=== PATIENT | female | born 1950 | race Caucasian/White ===

== ENCOUNTER 2024-06-22 05:52 | Inpatient (IN) | payer OTHER, SELFPAY ==
[2024-06-21 23:50] VITALS: BP 129/54
[2024-06-22 00:19] VITALS: BMI 18.3
[2024-06-22 00:37] LABS: % Basophils 0.5 % (0-2); % Eosinophils 0.5 % (0-6); % Immature Granulocytes 0.8 % (0-0.5); % Lymphocytes 10.5 % (20.5-51.1); % Monocytes 5.5 % (1.7-9.3); % Neutrophils 82.2 % (42.2-75.2); Absolute Basophils 0.1 10^3/uL (0-0.2); Absolute Eosinophils 0.1 10^3/uL (0-0.7); Absolute Immature Granulocytes 0.1 10^3/uL (0-0.05); Absolute Lymphocytes 1.4 10^3/uL (1.2-3.4); Absolute Monocytes 0.7 10^3/uL (0.1-0.6); Absolute Neutrophils 10.7 10^3/uL (1.4-6.5); Hematocrit 39.6 % (37.0-47.0); Hemoglobin 13.8 g/dL (12.0-16.0); Mean Corp Hgb Conc. 34.8 g/dL (33.0-37.0); Mean Corpuscular Hgb 29.1 pg (27.0-31.0); Mean Corpuscular Volume 83.5 fL (81.0-99.0); Mean Platelet Volume 10.6 fL (7.4-10.4); Nucleated Red Blood Cells % 0 %; Platelet Count 186 10^3/uL (130-400); Red Blood Cell Count 4.74 10^6/uL (4.20-5.40); Red Cell Dist. Width 14.1 % (11.5-14.5)
[2024-06-22 00:50] LABS: ALT (SGPT) 12 U/L (0-35); AST (SGOT) 22 U/L (14-36); Albumin 4.2 g/dl (3.5-5.0); Alkaline Phosphatase 66 U/L (38-126); Blood Urea Nitrogen 18 mg/dl (7-17); Calcium 9.5 mg/dl (8.4-10.2); Carbon Dioxide 20 mmol/L (22-30); Chloride 107 mmol/L (98-107); Estimated Creatinine Clearance 41 ml/min; Glucose 149 mg/dl (70-99); Lipase 1637 U/L (23-300); Potassium 3.6 mmol/L (3.5-5.1); Sodium 138 mmol/L (135-145); Total Bilirubin 0.7 mg/dl (0.2-1.3); Total Protein 6.6 g/dl (6.3-8.2); eGFR > 60.00
[2024-06-22 01:00] VITALS: BP 144/67
--- NOTE | 2024-06-22 01:10 | ED.GENMED ---
History of Present Illness
General
Chief Complaint: Dizziness
Source: patient
Exam Limitations: none
Time Seen by Provider: 06/22/24 01:07
History of Present Illness
History of Present Illness:
74-year-old female with past medical history of COPD, M�ni�re's disease, GERD, presents emergency department today with concerns of dizziness, nausea and vomiting. Patient reports that this started a few hours prior to arrival to emergency
department. When asked if she has had this before or if her symptoms have gotten better, she states that she is not sure. She denies any fevers or chills with this. She does note some lower chest pain/epigastric pain associated with this as well.
She denies any past history of intra-abdominal surgeries. She states that this came on all of a sudden and states that she has been feeling well the past few days. She has any alcohol use, NSAIDs. She denies any rectal bleeding, dark tarry
stools. She does note a mild frontal headache. She comes from home where she called EMS. She denies any shortness of breath. She denies any syncopal episodes.
Past History
Past History
ED Past Medical History: COPD and GERD
ED Past Surgical History: Other
Social History
Tobacco: Former smoker
Drug: None
Personal: Single
Living: other
Family History
Family History: Other
Review of Systems
Review of Systems
All Other Systems: ROS reviewed and negative except as documented in HPI and ROS
Phy Exam
Physical Exam
Physical Exam:
General: Patient actively vomiting, however nontoxic appearing
Skin: Warm and dry, no rashes or lesions
Head: Normocephalic, atraumatic
Eyes: Sclera non-icteric. EOMs intact.
Cardiac: Patient mildly tachycardic otherwise regular rhythm, no murmurs, no tenderness to palpation external chest wall
Pulm: Normal respiratory effort, no wheezes, rales, rhonchi
Abdomen: Epigastric abdominal tenderness with guarding noted, no rebound tenderness, normoactive bowel sounds
Neuro: CN II-XII intact, no focal neurologic deficits.
Psychiatric: Appropriate mood and affect.
Course
Orders/Labs/Results
Orders:
Orders
06/21/24 23:54
ECG [Electrocardiogram (*1)] Urgent
Reason for Study: Vertigo / Dizzy
EKG- Treatment ONCE
06/22/24 00:11
Alcohol Urgent
Complete Blood Count/With Diff Urgent
Comprehensive Metabolic Panel Urgent
Lipase Urgent
06/22/24 01:27
Lactated Ringers [Lr] 500 ml IV BOLUS
Ondansetron Injectable [Zofran] 4 mg IV NOW STA
06/22/24 01:28
CT Head W/o Iv Contrast Urgent
Comment:
Reason For Exam: dizziness, headache
CR Chest - 2 Views Urgent
Comment:
Reason For Exam: transient hypoxia
06/22/24 01:33
US Abdomen Complete/Upper Urgent
Comment:
Reason For Exam: epigastric pain, elevated lipase
06/22/24 01:38
COVID-19 Antigen Urgent
Source: Nasal Swab
Influenza A+B Rapid Molecular Urgent
NINO Source: Nasal Swab
Specimen Description:
06/22/24 02:27
Ondansetron HCl [Zofran] 4 mg PO NOW STA
06/22/24 02:28
Ondansetron Injectable [Zofran] 4 mg .ROUTE .STK-MED ONE
Ondansetron Injectable [Zofran] 4 mg IV NOW STA
06/22/24 03:23
Add On- LAB Urgent
Tests Added?: Alcohol
06/22/24 04:38
Lactated Ringers [Lr] 500 ml IV BOLUS
Abnormal Lab Results
06/22/24
00:11
WBC 13.0 H 10^3/uL
(4.8-10.8)
MPV 10.6 H fL
(7.4-10.4)
Abs Immat Gran (auto) 0.1 H 10^3/uL
(0-0.05)
Absolute Neuts (auto) 10.7 H 10^3/uL
(1.4-6.5)
Absolute Monos (auto) 0.7 H 10^3/uL
(0.1-0.6)
Immature Gran % 0.8 H %
(0-0.5)
Neutrophils % 82.2 H %
(42.2-75.2)
Lymphocytes % 10.5 L %
(20.5-51.1)
Carbon Dioxide 20 L mmol/L
(22-30)
BUN 18 H mg/dl
(7-17)
Glucose 149 H mg/dl
(70-99)
Lipase 1637 H* U/L
(23-300)
06/22/24 00:11
06/22/24 00:11
Vital Signs
Initial and Last Documented VS:
Initial Vital Signs
Temp Pulse Resp BP Pulse Ox
97.7 F 68 27 129/54 100
06/21/24 23:50 06/21/24 23:50 06/21/24 23:50 06/21/24 23:50 06/21/24 23:50
Last Documented Vital Signs
Temp Pulse Resp BP Pulse Ox
97.7 F 66 19 144/67 100
06/21/24 23:50 06/22/24 03:30 06/22/24 03:30 06/22/24 01:00 06/22/24 03:30
MDM/Problems Addressed
Differential Diagnosis Includes:
Differentials include gastroenteritis, pancreatitis, gastritis, duodenitis, BPPV, vestibular neuritis, M�ni�re's disease exacerbation
MDM/Problems Addressed:
74-year-old female presents emergency department with concerns of nausea, vomiting, and dizziness. She has started to develop some epigastric pain as well. Physical exam, she actively vomiting but otherwise nontoxic-appearing. She does have
epigastric tenderness palpation. Her blood work is notable for a leukocytosis as well as elevated lipase at 1637 however her ultrasound of the abdomen is unremarkable. History and physical consistent with acute pancreatitis. Patient did become
hypoxic in the 80s on room air while here in emergency department however she does deny shortness breath. Because of this, x-ray was obtained of the chest with no evidence of pneumonia, pneumothorax, or other acute disease. Her hypoxia resolved
without intervention. Patient given Zofran and LR with relief of her symptoms. Due to patient's dizziness, and lethargy, CT scan of the head was obtained which showed no evidence of acute hemorrhage herniation or hydrocephalus.
*Pulse Oximetry
Patient hypoxic: no
*Critical Care Note
Total Time (30-74mins, 75-104mins- exclusive of procedures): Not Applicable
Update Note
Update Note:
4:42 am-- I was notified that patient became hypoxic in the 80s with sleep, patient placed on 2L via nasal canula
ED Attending Note
-
Portions of this chart may have been created with voice recognition software.� Occasional wrong word or��sound alike� substitutions may have occurred due to the inherent limitations of voice recognition software.
Discharge Plan
Departure
Patient Disposition: Admit
Date of Disposition: 06/22/24
Time of Disposition: 04:39
Admit to: Med/Surg
Presentation/result/management discussed w/ accepting MD/DO: Hospitalist
Patient with high blood pressure during this ER visit?: Yes
Condition: Fair
Discharge Problem:
Acute pancreatitis
Prescriptions:
No Action
thyroid (pork) [[place] Thyroid] 60 MG tablet
60 mg PO DAILY
Pryor's Wort
1 tab PO PRN
Vitamin D
1 tab PO DAILY
Quercetin
1 tab PO DAILY
Referrals:
Jeffrey Guerra MD [Family Provider] -
Interventions
Interventions:
*Risk Screen - Suicide Last Done: 06/21/24 23:50
*General Assessment Last Done: 06/22/24 02:45
*Neglect/Abuse Screening Last Done: 06/21/24 23:50
*ED- Fall Risk Assessment Last Done: 06/22/24 02:45
*ED COVID-19 Vaccine History Last Done: 06/22/24 02:45
ED- Neurological Assessment Last Done: 06/22/24 00:21
ED- Cardiac Assessment Last Done: 06/22/24 00:21
Discharge Date and Time
Print Language: VIET[place]ESE
[2024-06-22] MEDS: ZOFRAN 4 MG IV ×3 (01:32→11:12)
[2024-06-22] MEDS: LR 500 IV ×2 (01:32→04:49)
[2024-06-22 02:06] LABS: COVID-19 Antigen Negative (Negative)
[2024-06-22 04:40] LABS: Alcohol None Detected
--- NOTE | 2024-06-22 05:02 | HPS.HSE ---
Family Physician
-
Family Physician: Jeffrey Guerra
Chief Complaint
-
N/V
History of Present Illness
Patient is a 74y F with PMH significant for hypothyroidism and dementia who presents to ED complaining of N/V. History is quite limited / suspect given patient's apparent dementia. She states that she 'must have' fallen at home prior to calling
the ambulance. She presented with complaints of abdominal pain and had N/V here in the ED. Patient denies abd pain or nausea at present. She is unable to provide detailed history of why she came to the ED.
She complains of some dizziness and it is noted that she has a diagnosis of Meniere's and a prescription for meclizine PRN.
Medical History
Past Medical History
Past Medical History: Reports Other
Additional Past Medical History:
Hypothyroidism
Senile Dementia
Meniere's Disease
Asthma
Past Surgical History: Reports Other
Additional Past Surgical History:
Unknown
Social History
Tobacco: Non-smoker
Alcohol: None
Drug: None
Family History
Family History: Not pertinent
Allergies / Home Medications
Allergies reflects when Allergies were last updated in [facility].
Home Medications with original date entered in [facility]
Allergy/Medication List:
Allergies
Allergy/AdvReac Type Severity Reaction Status Date / Time
azithromycin Allergy hearing Verified 01/17/18 17:31
loss
iodine [Iodine] Allergy Unknown Verified 01/17/18 17:31
paroxetine HCl [From Paxil] Allergy LETHARGY Verified 01/17/18 17:31
Penicillins Allergy Unknown Verified 01/17/18 17:31
terconazole [From Terazol 3] Allergy Unknown Verified 01/17/18 17:31
Home Medications
thyroid (pork) 60 mg tablet ([place] Thyroid) 60 mg PO DAILY 06/10/08
albuterol sulfate 90 mcg/actuation aerosol inhaler 2 puff inhalation Q6H PRN SOB 06/22/24
ascorbic acid (vitamin C) 500 mg tablet (Vitamin C) 500 mg PO DAILY 06/22/24
cyanocobalamin (vitamin B-12) 100 mcg tablet 100 mcg PO DAILY 06/22/24
donepezil 10 mg tablet 10 mg PO DAILY 06/22/24
lorazepam 0.5 mg tablet 0.5 mg PO BID PRN anxiety 06/22/24
meclizine 12.5 mg tablet 12.5 mg PO TID PRN dizziness 06/22/24
Review of Systems
-
Unable to obtain full review of systems at this time due to: Dementia
History Source: Patient
A 12 point ROS was completed and negative except as noted: Yes
Constitutional: Denies Fever or Chills
Respiratory: Denies Cough or Trouble Breathing
Cardiac: Denies Chest Pain or Palpitations
Abdomen/GI: Reports Abdominal Pain, Nausea and Vomiting; Denies Diarrhea
: Denies Dysuria or Frequency
Musculoskeletal: Denies Joint Pain or Edema
Neurological: Reports Dizzy; Denies Headache
Psych: Denies Depression or Anxiety
Physical Exam
Vital Signs
Vital Signs
Temp Pulse Resp BP Pulse Ox
97.7 F 62 15 144/67 98
06/21/24 23:50 06/22/24 04:45 06/22/24 04:45 06/22/24 01:00 06/22/24 04:45
Physical Exam
General: Other (74y F in no acute distress.)
HEENT: Moist mucous membranes and PERRLA
Respiratory: Clear; No Wheezes, Rales or Rhonchi
Cardiac: S1/S2 and Regular Rhythm; No Murmur
GI: Soft, Non Distended, Normal Bowel Sounds and Other (Pos tenderness without guarding in the RUQ / epigastric regions.)
Musculoskeletal: No Clubbing, No Cyanosis and No Edema
Neuro: Awake and Alert; No Oriented
Laboratory Results
-
06/22/24 00:11
06/22/24 00:11
Laboratory Results
Total Bilirubin 0.7 mg/dl (0.2-1.3) 06/22/24 00:11
AST 22 U/L (14-36) 06/22/24 00:11
ALT 12 U/L (0-35) 06/22/24 00:11
Alkaline Phosphatase 66 U/L (38-126) 06/22/24 00:11
Lipase 1637 U/L (23-300) H* 06/22/24 00:11
Impression/Plan
-
A/P: Patient is a 74y F with PMH significant for thyroid disease and dementia who presents to ED with complaints of abdominal pain and N/V.
Acute Pancreatitis
- Admit for further evaluation and treatment.
- Likely gallstone pancreatitis with stones seen on US, though unremarkable LFTs.
- Lipase elevated at 1637.
- No imaging evidence of GB wall thickening, fluid, etc to suggest acute cholecystitis.
- NPO, IVFs, pain control and antiemetics.
- Follow for clinical improvement.
- GI evaluation for additional recommendations.
- May benefit from eventual cholecystectomy.
Senile Dementia
- Very difficult history due to confusion / dementia.
- External Med Summary includes recent PCP notes discussing concern re: her evident confusion / dementia.
- Patient recently started on Aricept (April).
- Currently lives alone.
- Follow for acute delirium / confusion during hospital stay.
- Case Management eval for discharge planning.
Hypothyroidism
- Continue current thyroid replacement.
Meniere's Disease
- Chronic issue - ? some dizziness complaints today related to this.
- Continue meclizine PRN.
- PT / Vestibular evaluation.
DVT Prophylaxis: SCDs
Code Status: Full
[2024-06-22 06:18] VITALS: BP 145/73; BMI 18.2
[2024-06-22] MEDS: LR 1000 IV ×2 (06:38→17:47)
[2024-06-22 07:25] VITALS: BP 110/65
[2024-06-22] MEDS: ARICEPT 10 MG PO (08:01)
[2024-06-22] MEDS: ARMOUR THYROID 60 MG PO (08:01)
[2024-06-22] MEDS: PROTONIX 40 MG PO (08:01)
--- NOTE | 2024-06-22 08:27 | CON.GI ---
Consultation
-
Date/Time Consultation Requested: 06/22/24608
Date/Time Consultation Performed: 06/22/24, 826
Requesting Provider: Dr. Musa Fry
Performing Provider: Dr. Trace Whitt
Reason for Consultation: Pancreatitis, cholelithiasis
Medical History
Chief Complaint / HPI
Chief Complaint: Nausea/vomiting
History of Present Illness:
Ms. Calvert is a 74 y.o female with past medical history of COPD, Meniere's disease, GERD, hypothyroidism and dementia who presented to the ED with dizziness and nausea/vomiting. Found to have an elevated lipase and symptoms concerning for
pancreatitis for which GI has been consulted for further evaluation and management.
Unfortunately, patient is a limited historian due to her dementia and unable to reach family (patient's daughter Dayana) early this AM. She currently denies any epigastric pain or nausea/vomiting currently. However, she arrived to the ED with
concern for epigastric discomfort along with nausea/vomiting over the past few days and found to have an elevated lipase concerning for pancreatitis and was admitted to medicine. Currently she denies any other fevers/chills or other constitutional
symptoms. Evelyn any known unintentional weight loss or previous bouts of pancreatitis. She is unaware of any family history of pancreatic malignancy. No recent or new medications and denies any significant alcohol use. Currently, she is unable to
provide any additional history and is concerned about her cat being fed at home. Received her daughter's phone numbers ([phone] and [phone]).
In the ED, patient was afebrile and HD-stable. Labs notable for BUN 18 and [place] Operator 0.9 along with normal calcium (9.5). LFTs wnl and lipase elevated (1637). EtOH level (-). CBC with WBC 13.0 with left shift and Hgb 13.8 and plts 186. CXR and CTH given
concern for dizziness were both negative. Abd US 06/22 revealed cholelithiasis without evidence of acute cholecystitis or biliary ductal dilatation. She was admitted to medicine for further management.
Past Medical History
Past Medical History: Other (Hypothyroidism, Senile Dementia, Meniere's Disease, Asthma)
Past Surgical History: Other (Unkown)
Social History
Tobacco: Non-Smoker
Alcohol: None
Drug: None
Family History
Family History: Reviewed & Not Pertinent
Allergies / Home Medications
Allergy/AdvReac Type Severity Reaction Status Date / Time
azithromycin Allergy hearing Verified 01/17/18 17:31
loss
iodine [Iodine] Allergy Unknown Verified 01/17/18 17:31
paroxetine HCl [From Paxil] Allergy LETHARGY Verified 01/17/18 17:31
Penicillins Allergy Unknown Verified 01/17/18 17:31
terconazole [From Terazol 3] Allergy Unknown Verified 01/17/18 17:31
�Medication �Instructions �Recorded
thyroid (pork) 60 mg tablet 60 mg PO DAILY 08/10/07
([place] Thyroid)
albuterol sulfate 90 mcg/actuation 2 puff inhalation Q6H PRN SOB 06/22/24
aerosol inhaler
ascorbic acid (vitamin C) 500 mg 500 mg PO DAILY 06/22/24
tablet (Vitamin C)
cyanocobalamin (vitamin B-12) 100 100 mcg PO DAILY 06/22/24
mcg tablet
donepezil 10 mg tablet 10 mg PO DAILY 06/22/24
lorazepam 0.5 mg tablet 0.5 mg PO BID PRN anxiety 06/22/24
meclizine 12.5 mg tablet 12.5 mg PO TID PRN dizziness 06/22/24
Review of Systems
-
Unable to obtain full review of systems at this time due to: Other (Unable to obtain due to mental status)
Vital Signs
Temp Pulse Resp BP Pulse Ox
97.7 F 76 18 145/73 98
06/22/24 06:18 06/22/24 06:18 06/22/24 06:18 06/22/24 06:18 06/22/24 06:18
Physical Exam
Exam
General: Other (Thin, elderly female, appears comfortable)
HEENT: Anicteric and Moist Mucous Membranes
Respiratory: Other (Normal WOB on room air)
Cardiac: S1/S2 and Regular Rhythm
GI: Soft, Non Tender and Non Distended
Skin: Warm
Neuro: Other (Grossly non-focal, moves all four extremities spotaneously)
Psych: Calm
Results
WBC 13.0 10^3/uL (4.8-10.8) H 06/22/24 00:11
Hgb 13.8 g/dL (12.0-16.0) 06/22/24 00:11
Hct 39.6 % (37.0-47.0) 06/22/24 00:11
MCV 83.5 fL (81.0-99.0) 06/22/24 00:11
Plt Count 186 10^3/uL (130-400) 06/22/24 00:11
Absolute Neuts (auto) 10.7 10^3/uL (1.4-6.5) H 06/22/24 00:11
Sodium 138 mmol/L (135-145) 06/22/24 00:11
Potassium 3.6 mmol/L (3.5-5.1) 06/22/24 00:11
Chloride 107 mmol/L (98-107) 06/22/24 00:11
Carbon Dioxide 20 mmol/L (22-30) L 06/22/24 00:11
BUN 18 mg/dl (7-17) H 06/22/24 00:11
Creatinine 0.9 mg/dL (0.6-1.0) 06/22/24 00:11
Calcium 9.5 mg/dl (8.4-10.2) 06/22/24 00:11
Total Bilirubin 0.7 mg/dl (0.2-1.3) 06/22/24 00:11
AST 22 U/L (14-36) 06/22/24 00:11
ALT 12 U/L (0-35) 06/22/24 00:11
Alkaline Phosphatase 66 U/L (38-126) 06/22/24 00:11
Lipase 1637 U/L (23-300) H* 06/22/24 00:11
Diagnostic Image Results: As detailed above
Assessment / Plan
-
Ms. Calvert is a 74 y.o female with past medical history of COPD, Meniere's disease, GERD, hypothyroidism and dementia who presented to the ED with dizziness and nausea/vomiting. Found to have an elevated lipase and symptoms concerning for
pancreatitis for which GI has been consulted for further evaluation and management.
#Acute, Mild Pancreatitis (1st episode)
#Leukocytosis likely Reactive
#Cholelithiasis w/out Biliary Ductal Dilatation
Impression: Patient presenting with nausea/vomiting and vague epigastric discomfort found to have an elevated lipase (1637) consistent with mild, acute pancreatitis. History limited due to her dementia/mental status, but appears to be her first
episode. No reported alcohol use and (-) EtOH level. Calcium wnl. LFTs nml and US Abdomen without any biliary ductal dilatation. Unclear etiology and doubt gallstone/biliary given her normal LFTs and without any biliary dilation on US. Pancreas
obscured by bowel gas and should r/o pancreatic neoplasm given her age and unclear if there has been any unintentional weight loss. Otherwise, her episode appears mild and with improving symptoms.
Recommendations:
- Keep NPO, once MRI obtained okay to start CLD
- Continue IVF for additional 24 hrs
- Hold abx, suspect mild leukocytosis reactive in setting of pancreatitis
- Will obtain TGs for completion
- Trend serial LFTs q daily
- Will obtain MRI/MRCP WWO contrast this admission for further evaluation given her age and first episode of pancreatitis to r/o panc lesion/malignancy
- Ensure bowel regimen with Miralax while inpatient
- IV anti-emetics and pain control PRN
- Will attempt to reach patient's daughter Dayana later today ([phone] and [phone])
- Rest of care as per primary team
Discussed with primary internal medicine team. GI will continue to follow.
Data Reviewed
-
Radiology: Image Personally Visualized and interpreted and Report Reviewed by me
Ultrasound: Image Personally Visualized and interpreted and Report Reviewed by me
Old Records: Reviewed
-
-
Thank you for consultation and allowing me to participate in the patient's care. Please call the onsite case manager GI physician during the after hours with any questions or concerns.
--- NOTE | 2024-06-22 11:02 | W.PN.HOSP.TC ---
Today's Communication/Plan
-
see A/P
Assessment / Plan
Assessment / Plan
74 yo F with PMH significant for hypothyroidism and dementia who presented to ED complaining of N/V. History is quite limited / suspect given patient's apparent dementia. She states that she 'must have' fallen at home prior to calling the
ambulance. She presented with complaints of abdominal pain and had N/V in the ED. Patient denies abd pain or nausea at present. She is unable to provide detailed history of why she came to the ED.
She complains of some dizziness and it is noted that she has a diagnosis of Meniere's and a prescription for meclizine PRN.
A/P:
# Acute Pancreatitis, Likely gallstone pancreatitis with stones seen on US, though unremarkable LFTs.
Lipase elevated at 1637. Cont to trend.
No imaging evidence of GB wall thickening, fluid, etc to suggest acute cholecystitis.
Cont NPO, IVFs, pain control and antiemetics.
Follow for clinical improvement.
GI on board
Check MR Abd / MRCP
Check TG level
May benefit from eventual cholecystectomy.
# Senile Dementia
Very difficult history due to confusion / dementia.
External Med Summary includes recent PCP notes discussing concern re: her evident confusion / dementia.
Patient recently started on Aricept (April).
Currently lives alone.
Follow for acute delirium / confusion during hospital stay.
Case Management eval for discharge planning.
# Hypothyroidism
Continue current thyroid replacement.
Check TSH reflex FT4
# Meniere's Disease
Chronic issue - ? some dizziness complaints today related to this.
Continue meclizine PRN.
PT / Vestibular evaluation.
DVT Prophylaxis: SCDs
Code Status: Full
DW GI
DW RN
total time spent 51 min
Anticipated Discharge: > 48 hours
Subjective/Interval History
-
Date of Service: June 22, 2024
Objective Data
-
Labs:
Laboratory Results
06/22/24
00:11
WBC 13.0 H
Hgb 13.8
Hct 39.6
Plt Count 186
Sodium 138
Potassium 3.6
Chloride 107
Carbon Dioxide 20 L
BUN 18 H
Creatinine 0.9
Glucose 149 H
Calcium 9.5
Total Bilirubin 0.7
AST 22
ALT 12
Alkaline Phosphatase 66
Vital Signs:
Vital Signs
Temp Pulse Resp BP Pulse Ox
36.6 C 83 18 110/65 97
06/22/24 07:25 06/22/24 07:25 06/22/24 07:25 06/22/24 07:25 06/22/24 07:25
Review of Systems
-
Abdomen/GI: Reports Nausea and Vomiting
Physical Exam
-
General: Well Developed, Well Nourished, No Apparent Distress and Conversant; Negative Respiratory Distress
HEENT: Normocephalic, Atraumatic, Nose Appears Normal and Ears Appear Normal; Negative Oxygen
Respiratory: Clear to Auscultation and Non Labored Respirations; Negative Accessory Resp Muscle Use
Cardiac: Regular Rhythm and S1/S2
GI: Soft, Nontender and Nondistended
Skin: Warm and Dry
Neuro: Awake and Alert
Psych: Calm
Data Reviewed
-
Ultrasound: Report Reviewed by me
Labs: Labs Reviewed by me
[2024-06-22 11:17] VITALS: BP 174/77
--- NOTE | 2024-06-22 11:23 | PTCARENOTE ---
C/o dizziness and nausea after ambulating to bathroom. Dr. French at bedside. Patient starting dry heaving. BP 174/77. Medicated w/ prn Zofran. Minutes before this episode, MRI called, ready for patient. MRI department made aware patient cannot come
d/t unable to lay still at this time d/t nausea/retching.
[2024-06-22] MEDS: COMPAZINE 10 MG IV (11:31)
[2024-06-22 11:48] VITALS: BMI 18.2
--- NOTE | 2024-06-22 12:57 | PTCARENOTE ---
MRI department reports MRCP unable to be completed until after 4pm. Dr. Fernch aware. Retching has stopped, but patient continues to c/o nausea and dizziness. Order for PRN meclizine noted, will provide.
[2024-06-22] MEDS: ANTIVERT 12.5 MG PO (13:00)
[2024-06-22] MEDS: ATIVAN 1 MG IV (13:45)
[2024-06-22 14:30] LABS: TSH Reflex To Free T4 2.88 uIU/ml (0.47-4.68)
--- NOTE | 2024-06-22 14:50 | PTCARENOTE ---
MRI able to take patient for MRCP at ~1345. Premedicated w/ Ativan as ordered. Per MRI department patient unable to tolerate scan d/t nausea and uncooperative d/t confusion. Dr. French aware. Patient now back in room.
[2024-06-22 15:15] VITALS: BP 110/79
--- NOTE | 2024-06-22 16:52 | PTCARENOTE ---
CT department noted allergy to iodine. Dr. French made aware. Premedication ordered by Dr. French per protocol per CT staff, see MAR. CT department reports CT scan can be done at ~0800 tomorrow morning. Premedication scheduled accordingly.
[2024-06-22] MEDS: MEDROL 32 MG PO (20:08)
[2024-06-22 23:52] VITALS: BP 132/65
[2024-06-23] MEDS: LR 1000 IV ×2 (01:43→10:55)
--- NOTE | 2024-06-23 05:57 | W.PN.GI.CBS2 ---
Today's Communication / Plan
-
Given recent CT imaging and previous limited MRI, will obtain repeat MRI this admission. Keep NPO pending MRI, then may ADAT to low-fat diet. Trend LFTs while inpatient. Rest of supportive as below. GI will continue to follow.
Assessment / Plan
-
Ms. Calvert is a 74 y.o female with past medical history of COPD, Meniere's disease, GERD, hypothyroidism and dementia who presented to the ED with dizziness and nausea/vomiting. Found to have an elevated lipase and symptoms concerning for
pancreatitis for which GI has been consulted for further evaluation and management.
#Acute, Mild Pancreatitis (1st episode)
#Leukocytosis likely Reactive
#Cholelithiasis w/out Biliary Ductal Dilatation
Impression: Patient presenting with nausea/vomiting and vague epigastric discomfort found to have an elevated lipase (1637) consistent with mild, acute pancreatitis. History limited due to her dementia/mental status, but appears to be her first
episode. No reported alcohol use and (-) EtOH level. Calcium wnl. LFTs nml and US Abdomen without any biliary ductal dilatation. Unclear etiology and doubt gallstone/biliary given her normal LFTs and without any biliary dilation on US. Pancreas
obscured by bowel gas and should r/o pancreatic neoplasm given her age and unclear if there has been any unintentional weight loss. Otherwise, her episode appears mild and with improving symptoms.
MRI Abdomen w/out contrast 06/22/24: Limited to a single coronal T2 series secondary to an uncooperative patient ; cholelithiasis; 5.4 mm CBD (wnl), suggested abrupt termination of the common bile duct at the superior margin of the pancreatic head,
versus artifact. Follow-up advised when the patient is able to be more cooperative, or with sedation
CT Abd/pelvis 06/23/24: Mild peripancreatic edema c/w mild pancreatitis without necrosis or peripancreatic fluid collection, multiple gallstones within GB without cholecystitis or biliary ductal dilatation; however, there is abrupt cut off of the
common bile duct and pancreatic duct in the region of the pancreatic head, also seen on prior limited MRI. There is mild heterogeneity within the pancreatic head in this region. This may represent focal pancreatitis or pancreatic neoplasm
Recommendations:
- Keep NPO pending repeat MRI
- May stop additional IVF
- Hold abx, previous mild leukocytosis now resolved
- TGs wnl (98)
- Trend LFTs q daily, low suspicion for GB/biliary induced pancreatitis given normal LFTs and without prior biliary ductal dilatation
- Given the concern for the abrupt cut-off of the CBD/PD within pancreatic head, would benefit from a repeat MRI Abdomen WWO contrast with MRCP
- Typically, this would be obtained in 6-8 weeks after resolution of pancreatitis but given imaging findings and c/f weight loss, would be prudent to repeat MRI imaging this admission given this finding
- Ensure bowel regimen with Miralax while inpatient
- IV anti-emetics and pain control PRN
- D/w patient's daughter, Dayana, this afternoon. Contact info - ([phone] and [phone])
- Rest of care as per primary team
Discussed with primary internal medicine team this afternoon. GI will continue to follow.
Subjective
Subjective
Date of Service: June 23, 2024
- MRI Abdomen w/out contrast 06/22/24: Limited to a single coronal T2 series secondary to an uncooperative patient ; cholelithiasis; 5.4 mm CBD (wnl), suggested abrupt termination of the common bile duct at the superior margin of the pancreatic
head, versus artifact. Follow-up advised when the patient is able to be more cooperative, or with sedation
- Ordered CT Abd/pelvis given previous nausea/vomiting yesterday on 06/22
- Otherwise, no acute events overnight
Resting comfortably this afternoon, patient's daughter at bedside (Dayana) and discussed patient's recent course/hospitalization. Currently, she reports complete resolution of her previous abdominal pain and without any further nausea/vomiting.
Her daughter does express concern about recent weight loss, but does seem to be over the past three years and likely from her mental status dementia. Otherwise, patient denies any fevers, chills or other constitutional symptoms.
Objective
Data Reviewed
Laboratory Data:
Laboratory Results
Total Bilirubin 0.7 mg/dl (0.2-1.3) 06/22/24 00:11
AST 22 U/L (14-36) 06/22/24 00:11
ALT 12 U/L (0-35) 06/22/24 00:11
Alkaline Phosphatase 66 U/L (38-126) 06/22/24 00:11
Lipase 1637 U/L (23-300) H* 06/22/24 00:11
Vital Signs and I&O:
Vital Signs
Temp Pulse Resp BP Pulse Ox
99.2 F 81 16 132/65 96
06/22/24 23:52 06/22/24 23:52 06/22/24 23:52 06/22/24 23:52 06/22/24 23:52
I&O
06/21/24 06/22/24 06/23/24
06:59 06:59 06:59
Intake Total 240 / 240
Balance 240 / 240
Physical Exam
Physical Exam
HEENT: Anicteric and Moist mucous membranes
Cardiology: Normal Sinus Rhythm
Pulmonary: Other (Normal WOB on room air)
GI: Soft, Non Distended and Non Tender
Extremities: Warm
Neuro: Non Focal
[2024-06-23] MEDS: MEDROL 32 MG PO (06:04)
--- NOTE | 2024-06-23 06:27 | DOWNTIME ---
There was a [employer] Client Physician Scribe Downtime on 06/23/2024 from 0200 to 06/24/2023 at 0318 . Downtime documentation of patient's care, including medication administrations, has been reconciled in the electronic record per guidelines. Refer to the
patient's paper chart under the miscellaneous tab to see printed paper medication records and downtime forms.
[2024-06-23 07:13] VITALS: BP 122/51
[2024-06-23] MEDS: BENADRYL 50 MG IV (07:20)
[2024-06-23 09:07] LABS: % Basophils 0.3 % (0-2); % Immature Granulocytes 0.4 % (0-0.5); % Lymphocytes 8.4 % (20.5-51.1); % Monocytes 4.3 % (1.7-9.3); % Neutrophils 86.6 % (42.2-75.2); Absolute Lymphocytes 0.7 10^3/uL (1.2-3.4); Absolute Monocytes 0.3 10^3/uL (0.1-0.6); Absolute Neutrophils 6.9 10^3/uL (1.4-6.5); Hematocrit 42.2 % (37.0-47.0); Hemoglobin 14.1 g/dL (12.0-16.0); Mean Corp Hgb Conc. 33.4 g/dL (33.0-37.0); Mean Corpuscular Hgb 28.6 pg (27.0-31.0); Mean Corpuscular Volume 85.6 fL (81.0-99.0); Mean Platelet Volume 10.6 fL (7.4-10.4); Nucleated Red Blood Cells % 0 %; Platelet Count 185 10^3/uL (130-400); Red Blood Cell Count 4.93 10^6/uL (4.20-5.40); Red Cell Dist. Width 14.5 % (11.5-14.5)
[2024-06-23] MEDS: NSS 250 IV (09:16)
[2024-06-23] MEDS: ARICEPT 10 MG PO (09:17)
[2024-06-23] MEDS: ARMOUR THYROID 60 MG PO (09:17)
[2024-06-23] MEDS: PROTONIX 40 MG PO (09:17)
[2024-06-23 10:00] LABS: Blood Urea Nitrogen 11 mg/dl (7-17); Calcium 9.1 mg/dl (8.4-10.2); Carbon Dioxide 23 mmol/L (22-30); Chloride 109 mmol/L (98-107); Estimated Creatinine Clearance 45 ml/min; Glucose 109 mg/dl (70-99); Potassium 4.4 mmol/L (3.5-5.1); Sodium 141 mmol/L (135-145); Triglycerides 98 mg/dl (10-149); eGFR > 60.00
[2024-06-23 10:15] VITALS: BP 130/72; PULSE 70
[2024-06-23 10:33] LABS: Lipase 113 U/L (23-300)
--- NOTE | 2024-06-23 11:28 | W.PN.HOSP.TC ---
Addendum entered and electronically signed by Kellen French MD 06/23/24 15:28:
# Underweight
Original Note:
Today's Communication/Plan
-
see A/P
Assessment / Plan
Assessment / Plan
74 yo F with PMH significant for hypothyroidism and dementia who presented to ED complaining of N/V. History is quite limited / suspect given patient's apparent dementia. She states that she 'must have' fallen at home prior to calling the
ambulance. She presented with complaints of abdominal pain and had N/V in the ED. Patient denies abd pain or nausea at present. She is unable to provide detailed history of why she came to the ED.
She complains of some dizziness and it is noted that she has a diagnosis of Meniere's and a prescription for meclizine PRN.
A/P:
# Acute Pancreatitis, Likely gallstone pancreatitis
daughter admits that pt eats a lot of fatty food
Lipase elevated at 1637 -> 113.
No imaging evidence of GB wall thickening, fluid, etc to suggest acute cholecystitis.
Start clears, ADAT; DC further IVF
Cont pain control and antiemetics. Follow for clinical improvement.
MR Abd / MRCP limited due to uncooperative patient, noted 5.4 mm common bile duct. Suggested abrupt termination of the common bile duct at the superior margin of the pancreatic head, versus artifact.
CT AP confirmed Mild peripancreatic edema, consistent with mild pancreatitis. No evidence of pancreatic necrosis or peripancreatic fluid collection. Multiple gallstones are seen within the gallbladder. There is abrupt cut off of the common bile duct
and pancreatic duct in the region of the pancreatic head, also seen on prior limited MRI. There is mild heterogeneity within the pancreatic head in this region. This may represent focal pancreatitis or pancreatic neoplasm.
Follow-up contrast enhanced MRI may be helpful, when the patient is able to tolerate.
GI on board
# Senile Dementia
Very difficult history due to confusion / dementia.
External Med Summary includes recent PCP notes discussing concern re: her evident confusion / dementia.
Pt currently lives alone. Daughter does not object to look into assisted living etc. CM informed
Patient was recently started on Aricept (April). Daughter would like Aricept to be stopped
Follow for acute delirium / confusion during hospital stay.
Case Management eval for discharge planning.
# Hypothyroidism
Continue current thyroid replacement.
TSH WNL at 2.88
# Meniere's Disease
Chronic issue - ? some dizziness complaints today related to this.
Continue meclizine PRN.
PT / Vestibular evaluation.
DVT Prophylaxis: SCDs
Code Status: Full
DW RN
DW daughter extensively in person
total time spent 51 min
Anticipated Discharge: 24 - 48 hours
Subjective/Interval History
-
Date of Service: June 23, 2024
Objective Data
-
Labs:
Laboratory Results
06/23/24
07:49
WBC 8.0
Hgb 14.1
Hct 42.2
Plt Count 185
Sodium 141
Potassium 4.4
Chloride 109 H
Carbon Dioxide 23
BUN 11
Creatinine 0.8
Glucose 109 H
Calcium 9.1
Vital Signs:
Vital Signs
Temp Pulse Resp BP Pulse Ox
36.8 C 66 16 122/51 98
06/23/24 07:13 06/23/24 07:13 06/23/24 07:13 06/23/24 07:13 06/23/24 07:13
I&O
06/22/24 06/23/24 06/24/24
06:59 06:59 06:59
Intake Total 480 / 480
Balance 480 / 480
Review of Systems
-
History Source: Patient
All other systems: Reviewed and negative
Physical Exam
-
General: Well Developed, Well Nourished, No Apparent Distress and Conversant; Negative Respiratory Distress
HEENT: Normocephalic, Atraumatic, Nose Appears Normal and Ears Appear Normal; Negative Oxygen
Respiratory: Clear to Auscultation and Non Labored Respirations; Negative Accessory Resp Muscle Use
Cardiac: Regular Rhythm and S1/S2
GI: Soft, Nontender and Nondistended
Skin: Warm and Dry
Neuro: Awake and Alert
Psych: Calm and Apparent Dementia
Data Reviewed
-
CT Scan: Report Reviewed by me and Discussed with Family
MRI: Report Reviewed by me and Discussed with Family
Labs: Labs Reviewed by me
--- NOTE | 2024-06-23 14:42 | PN.CDI ---
CDI
- -
CDI:
Physician Documentation Request
Admit Date: 06/22/24 05:52
Dear Doctor Gillian,
Clinical Indicators:
Patient admitted with acute pancreatitis; PMH includes dementia.
Height: 5 ft 4 in
Weight: 106 lbs
BMI: 18.2 kg
06/22 note, 'BMI 18.2 underweight range (06/22)'
If possible, please provide an associated diagnosis related to the abnormal BMI (< or = to 19), such as:
Underweight
BMI not significant
Other, please specify
Use of terms such as suspected, likely, concern for, or probable (associated with a specific diagnosis that is being evaluated, monitored, or treated as if it exists) are acceptable and can be coded in the inpatient setting, when documented at the
time of discharge.
Thank you,
WILLIAM Mensah RN
CDI Specialist
available via tiger text
Please use your independent medical judgment in providing your response.
[2024-06-23 15:05] VITALS: BP 138/74
--- NOTE | 2024-06-23 16:28 | CM ---
Met with patient to obtain information for assessment. Patient stated that she lives alone in a townhouse with two cats and two steps to enter. She described herself as independent with bathing, dressing, personal care and all ADLs. She relayed that
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 She has never had VN. She has not been to a SNF. She denied having any DME.
Patient has a prescription plan however her pharmacy was not listed.
Patient's PCP is, Jeffrey Guerra.
Patient is hopeful that she will be discharged soon as she has upcoming plans to go [place] with [place].
Plan: Case management will contine to follow and assist with discharge planning. Should be home no needs.
[2024-06-23 23:33] VITALS: BP 134/64
[2024-06-24 05:45] LABS: Hepatitis C Antibody Negative (Negative)
[2024-06-24 08:24] VITALS: BP 133/64
[2024-06-24 08:48] LABS: % Basophils 0.6 % (0-2); % Eosinophils 0.5 % (0-6); % Immature Granulocytes 0.4 % (0-0.5); % Lymphocytes 20.6 % (20.5-51.1); % Monocytes 7.5 % (1.7-9.3); % Neutrophils 70.4 % (42.2-75.2); Absolute Basophils 0.1 10^3/uL (0-0.2); Absolute Lymphocytes 1.6 10^3/uL (1.2-3.4); Absolute Monocytes 0.6 10^3/uL (0.1-0.6); Absolute Neutrophils 5.5 10^3/uL (1.4-6.5); Hematocrit 40.8 % (37.0-47.0); Hemoglobin 13.5 g/dL (12.0-16.0); Mean Corp Hgb Conc. 33.1 g/dL (33.0-37.0); Mean Corpuscular Hgb 28.6 pg (27.0-31.0); Mean Corpuscular Volume 86.4 fL (81.0-99.0); Mean Platelet Volume 10.8 fL (7.4-10.4); Nucleated Red Blood Cells % 0 %; Platelet Count 162 10^3/uL (130-400); Red Blood Cell Count 4.72 10^6/uL (4.20-5.40); Red Cell Dist. Width 14.3 % (11.5-14.5); White Blood Cell Count 7.9 10^3/uL (4.8-10.8)
[2024-06-24] MEDS: ARMOUR THYROID 60 MG PO (08:52)
[2024-06-24] MEDS: PROTONIX 40 MG PO (08:52)
[2024-06-24 09:08] LABS: Blood Urea Nitrogen 14 mg/dl (7-17); Calcium 9.1 mg/dl (8.4-10.2); Carbon Dioxide 26 mmol/L (22-30); Chloride 110 mmol/L (98-107); Estimated Creatinine Clearance 40 ml/min; Glucose 86 mg/dl (70-99); Lipase 182 U/L (23-300); Potassium 4.1 mmol/L (3.5-5.1); Sodium 141 mmol/L (135-145); eGFR > 60.00
--- NOTE | 2024-06-24 09:58 | W.PN.GI.CBS2 ---
Today's Communication / Plan
-
low fat diet, dc planning, gi signing off
Assessment / Plan
-
Ms. Calvert is a 74 y.o female with past medical history of COPD, Meniere's disease, GERD, hypothyroidism and dementia who presented to the ED with dizziness and nausea/vomiting. Found to have an elevated lipase and symptoms concerning for
pancreatitis for which GI has been consulted for further evaluation and management.
#Acute, Mild Pancreatitis (1st episode)
#Leukocytosis likely Reactive
#Cholelithiasis w/out Biliary Ductal Dilatation
Impression: Patient presenting with nausea/vomiting and vague epigastric discomfort found to have an elevated lipase (1637) consistent with mild, acute pancreatitis. History limited due to her dementia/mental status, but appears to be her first
episode. No reported alcohol use and (-) EtOH level. Calcium wnl. LFTs nml and US Abdomen without any biliary ductal dilatation.
MRI Abdomen w/out contrast 06/22/24: Limited to a single coronal T2 series secondary to an uncooperative patient ; cholelithiasis; 5.4 mm CBD (wnl), suggested abrupt termination of the common bile duct at the superior margin of the pancreatic head,
versus artifact. Follow-up advised when the patient is able to be more cooperative, or with sedation
CT Abd/pelvis 06/23/24: Mild peripancreatic edema c/w mild pancreatitis without necrosis or peripancreatic fluid collection, multiple gallstones within GB without cholecystitis or biliary ductal dilatation; however, there is abrupt cut off of the
common bile duct and pancreatic duct in the region of the pancreatic head, also seen on prior limited MRI. There is mild heterogeneity within the pancreatic head in this region. This may represent focal pancreatitis or pancreatic neoplasm
MRI 04/25 - Limited examination secondary to patient's inability to tolerate the examination.
Cholelithiasis.
The common bile duct measures 5.8 mm, similar to prior. There is apparent 2 mm filling defect within the mid duct favored to represent choledocholithiasis.
Today I d/w daughter Dayana and patient at length MRI findings.
They do not want EUS/ERCP even with findings above.
D/w daughter r/a/b of EUS/ERCP inc not limited to bleeding, infection, perforation, pancreatitis.
I explained there is possibly a stone in the CBD which may have led to pancreatitis.
There is a 20-30% risk of recurrent pancreatitis, cholecystitis or cholangitis without intervention.
EUS can also evaluate if there is a mass in the pancreas.
Would likely need CCY pending findings as well.
They do not want further interventions at this time understanding the risk of not intervening.
Will advance to low fat diet.
Do not want GI follow up at this time but I will leave our number if they decide to make appt in future.
GI will sign off.
D/w hospitalist team as well.
Subjective
Subjective
Date of Service: June 24, 2024
pt feels well no pain, no n/v
c/o dizziness
Objective
Data Reviewed
Laboratory Data:
Laboratory Results
06/24/24 07:33
06/24/24 07:33
Laboratory Results
Total Bilirubin 0.7 mg/dl (0.2-1.3) 06/22/24 00:11
AST 22 U/L (14-36) 06/22/24 00:11
ALT 12 U/L (0-35) 06/22/24 00:11
Alkaline Phosphatase 66 U/L (38-126) 06/22/24 00:11
Lipase 182 U/L (23-300) 06/24/24 07:33
Vital Signs and I&O:
Vital Signs
Temp Pulse Resp BP Pulse Ox
98 F 81 18 133/64 98
06/24/24 08:24 06/24/24 08:24 06/24/24 08:24 06/24/24 08:24 06/24/24 08:24
I&O
06/23/24 06/24/24 06/25/24
06:59 06:59 06:59
Intake Total 480 / 480 1140 / 1140
Balance 480 / 480 1140 / 1140
Physical Exam
Physical Exam
GI: Non Distended and Non Tender
--- NOTE | 2024-06-24 14:35 | W.PN.HOSP.TC ---
Today's Communication/Plan
-
dc now
Assessment / Plan
Assessment / Plan
74 yo F with PMH significant for hypothyroidism and dementia who presented to ED complaining of N/V. History is quite limited / suspect given patient's apparent dementia. She states that she 'must have' fallen at home prior to calling the
ambulance. She presented with complaints of abdominal pain and had N/V in the ED. Patient denies abd pain or nausea at present. She is unable to provide detailed history of why she came to the ED.
She complains of some dizziness and it is noted that she has a diagnosis of Meniere's and a prescription for meclizine PRN.
A/P:
# Acute Pancreatitis, Likely gallstone pancreatitis
daughter admits that pt eats a lot of fatty food
Lipase elevated at 1637 -> 113.
No imaging evidence of GB wall thickening, fluid, etc to suggest acute cholecystitis.
Start clears, ADAT; diet advanced, which she tolerated
Pt and dgt want her to go home and they will follow up with surgery post dc. Call placed to ROSA Mcfarlane who will call office and office will be in touch
Cont pain control and antiemetics. Follow for clinical improvement.
MR Abd / MRCP limited due to uncooperative patient, noted 5.4 mm common bile duct. Suggested abrupt termination of the common bile duct at the superior margin of the pancreatic head, versus artifact.
CT AP confirmed Mild peripancreatic edema, consistent with mild pancreatitis. No evidence of pancreatic necrosis or peripancreatic fluid collection. Multiple gallstones are seen within the gallbladder. There is abrupt cut off of the common bile duct
and pancreatic duct in the region of the pancreatic head, also seen on prior limited MRI. There is mild heterogeneity within the pancreatic head in this region. This may represent focal pancreatitis or pancreatic neoplasm.
Follow-up contrast enhanced MRI may be helpful, when the patient is able to tolerate.
GI on board
# Senile Dementia
Very difficult history due to confusion / dementia.
External Med Summary includes recent PCP notes discussing concern re: her evident confusion / dementia.
Pt currently lives alone. Daughter does not object to look into assisted living etc. CM informed, pt and dgt want her to go home, will look into Assisted Living, but for now requires someone to live with her and absolutely no driving
Patient was recently started on Aricept (April). Daughter would like Aricept to be stopped
Follow for acute delirium / confusion during hospital stay.
Case Management eval for discharge planning.
# Hypothyroidism
Continue current thyroid replacement.
TSH WNL at 2.88
# Meniere's Disease
Chronic issue - ? some dizziness complaints today related to this.
Continue meclizine PRN.
PT / Vestibular evaluation.
DVT Prophylaxis: SCDs
Code Status: Full
DW RN
DW daughter extensively in person in room and at desk
total time spent 60 min
Anticipated Discharge: Today
Subjective/Interval History
-
Date of Service: June 24, 2024
Feels well, absolutely no pain
Objective Data
-
Labs:
Laboratory Results
06/24/24
07:33
WBC 7.9
Hgb 13.5
Hct 40.8
Plt Count 162
Sodium 141
Potassium 4.1
Chloride 110 H
Carbon Dioxide 26
BUN 14
Creatinine 0.9
Glucose 86
Calcium 9.1
Vital Signs:
Vital Signs
Temp Pulse Resp BP Pulse Ox
98 F 81 18 133/64 98
06/24/24 08:24 06/24/24 08:24 06/24/24 08:24 06/24/24 08:24 06/24/24 08:24
I&O
06/23/24 06/24/24 06/25/24
06:59 06:59 06:59
Intake Total 480 / 480 1140 / 1140
Balance 480 / 480 1140 / 1140
Review of Systems
-
History Source: Patient and Family (dgt at bedside)
Constitutional: Denies Fever
Respiratory: Reports No Symptoms
Cardiac: Reports No Symptoms
Abdomen/GI: Reports No Symptoms; Denies Abdominal Pain (denied)
Genitourinary: Reports No Symptoms
Physical Exam
-
General: Well Developed, No Apparent Distress and Other (thin)
HEENT: Normocephalic, Atraumatic and Moist Mucous Membranes
Respiratory: Clear to Auscultation; Negative Wheezes, Rales or Rhonchi
Cardiac: Regular Rhythm and S1/S2
GI: Soft, Nontender, Nondistended and Normal Bowel Sounds
Musculoskeletal: No Clubbing, No Cyanosis and No Edema
--- NOTE | 2024-06-24 15:15 | CM ---
Patient stable for d/c today. Met w/ patient bedside w/ daughter and hospitalist.
CM consulted for VN/home care, patient declined need. Daughter is supportive
IMM verbally reviewed, patient given copy, copy placed on chart
Plan: Home; no needs
[2024-06-24 15:17] VITALS: BP 133/73
--- NOTE | 2024-06-24 16:10 | W.DS.TRANS ---
DC Summary - [employer]
-
Discharge Instructions:
Discharge Diagnosis/Procedures Gallstone Pancreatitis
Diet Low Fat
Activity With assistance
Driving Restrictions Not until seen by your Dr
Bathing Restrictions None
Blood Work CBC, CMP, Lipase in 1-2 weeks
Other Services VN
Instructions:
Stand-Alone Forms:
Changes to Home Medications: Yes
Discharge Medications:
DC Medications w/original date entered in [employer]
thyroid (pork) 60 mg tablet (Dent Thyroid) 60 mg PO DAILY Thyroid 08/10/07
albuterol sulfate 90 mcg/actuation aerosol inhaler 2 puff inhalation Q6H PRN SOB 06/22/24
ascorbic acid (vitamin C) 500 mg tablet (Vitamin C) 500 mg PO DAILY Supplement 06/22/24
cyanocobalamin (vitamin B-12) 100 mcg tablet 100 mcg PO DAILY Supplement 06/22/24
meclizine 12.5 mg tablet 12.5 mg PO TID PRN dizziness 06/22/24
Home Medication Changes
Pt had stopped Aricept and was not included on dc medication list
should not take Ativan
Pending Results: No
== END 2024-06-24 15:24 | disposition home or self-care (01) | DRG 439 ==
LOC: 4 EAST ACU 05:52
PROVIDERS: Internal Medicine; Physician Assistant; ADMITTING PHYSICIAN Hospitalist; ATTENDING PHYSICIAN Internal Medicine; CONSULT PHYSICIAN Student in an Organized Health Care Education/Training Program; EMERGENCY PHYSICIAN Student in an Organized Health Care Education/Training Program; FAMILY PHYSICIAN Family Medicine
DX: K85.10 Biliary acute pancreatitis without necrosis or infection (principal); Z68.1 Body mass index [BMI] 19.9 or less, adult; F03.90 Unspecified dementia, unspecified severity, without behavioral disturbance, psychotic disturbance, mood disturbance, and anxiety; K80.20 Calculus of gallbladder without cholecystitis without obstruction; E03.9 Hypothyroidism, unspecified; H81.09 Meniere's disease, unspecified ear; R63.6 Underweight; Z87.891 Personal history of nicotine dependence; Z11.52 Encounter for screening for COVID-19
CPT/HCPCS: 70450; 71046; 74177; 74181; 76700; 80048; 80053; 82077; 83690; 84443; 84478; 85025; 86803; 87502; 87811; 93005; 97162; Q9967